=== PATIENT | female | born 1965 | race Two or more races ===

== ENCOUNTER 2022-01-11 12:02 | Outpatient (REF) | payer OTHER, SELFPAY ==
--- NOTE | ~2022-01-11 | MM_ITS ---
EXAMINATION: MM SCREENING DIGITAL BREAST TOMOSYNTHESIS, BILATERAL CLINICAL INFORMATION: Screening. Asymptomatic. The lifetime risk of breast cancer based on the Tyrer-Cuzick Model is 5%. COMPARISON: Mammography: 06/19/2019, outside mammography 06/29/2017 ([facility]). TECHNIQUE: Digital breast tomosynthesis is performed in both the craniocaudal and mediolateral oblique views along with computer-aided detection (CAD). Synthesized 2D images are generated from the tomosynthesis. FINDINGS: The breasts are heterogeneously dense, which may obscure small masses (ACR BI-RADS breast composition Category c). Parenchymal pattern is similar to prior studies. There is no interval mass or architectural abnormality or developing density. The axilla and skin contours are unremarkable. Small circumscribed nodule anterior 3:00 left breast is stable. There are some interval coarse calcifications overlying oil cyst posterior medial left breast with prior mammography. Right breast again demonstrates 2 biopsy clip markers posterior lower inner breast. There are some adjacent stable calcifications adjacent to the more posterior clip. MM/MM tomosynthesis screening BI IMPRESSION: No significant changes from prior exams. ASSESSMENT: BI-RADS 2: Benign RECOMMENDATION: Routine annual mammography screening. This patient's information was entered into a reminder system with a target due date for their next mammogram.
--- NOTE | ~2022-01-11 | MM_ITS ---
EXAMINATION: BONE DENSITOMETRY CLINICAL INDICATION: Menopause. COMPARISON: Baseline BD dated 06/14/2019. TECHNIQUE: Using a [employer] DXA System (software version: 13.1) manufactured by [employer], dual-energy x-ray absorptiometry was performed of the lumbar spine and left hip. The images are of good technical quality. Summary results are attached. FINDINGS: AP SPINE L1-L4: Current: BMD 1.066 g/cm2, Z-score 0.2, T-score -0.9, normal, 0.9% decrease from baseline (<5% change is not significant). Baseline: BMD 1.076 g/cm2. LEFT FEMUR, NECK: Current: BMD 0.796 g/cm2, Z-score -0.5, T-score -1.7, osteopenia. Baseline: BMD 0.808 g/cm2. LEFT FEMUR, TOTAL: Current: BMD 0.910 g/cm2, Z-score 0.1, T-score -0.8, normal, 2.9% decrease from baseline (<5% change is not significant). Baseline: BMD 0.937 g/cm2. IDENTIFIED RISK FACTORS: Menopause, rheumatoid arthritis, Thiazide. HISTORY OF FRACTURE: None listed. MEDICATIONS: Vitamin D. MM/XR DEXA axial skeleton IMPRESSION: 1. DIAGNOSIS: Osteopenia based on the lowest T-score value of -1.7 in the femoral neck applying World Health Organization criteria. 2. 10-YEAR FRACTURE RISK PREDICTION, FRAX: Major osteoporotic fracture (clinical spine, forearm, hip or shoulder) 5.9%. Hip fracture 0.7%. 3. Treatment Recommendations: NOF guidelines recommend consideration for treatment in postmenopausal women and men age 50 and older presenting with the following: -A hip or vertebral (clinical or morphometric) fracture. -T-score less than or equal to -2.5 at the femoral neck or spine after appropriate evaluation to exclude secondary causes. -Low bone mass at the hip or spine and a 10-year fracture probability by FRAX of greater than or equal to 3% for hip fracture or greater than or equal to 20% for major osteoporotic fracture based on the [place] adapted WHO algorithm. 4. Other Recommendations: All treatment decisions require clinical judgment and consideration of individual patient factors, including patient preferences, comorbidities, previous drug use, risk factors not captured in the FRAX model (e.g. frailty, falls, vitamin D deficiency, increased bone turnover, interval significant decline in bone density) and possible under or overestimation of fracture risk by FRAX. Additional medical evaluation for secondary cause of low bone mineral density may be appropriate. FUTURE SCAN RECOMMENDATION: People with diagnosed cases of osteoporosis or at high risk for fracture should have regular bone mineral density tests. For patients eligible for Medicare, routine testing is allowed once every 2 years. The testing frequency can be increased to one year for patients who have rapidly progressing disease, those who are receiving or discontinuing medical therapy to restore bone mass, or have additional risk factors.
== END 2022-01-11 12:03 | disposition home or self-care (01) ==
LOC: HO.MAMMO 12:02
PROVIDERS: PCP Pediatrics; Visit Provider Internal Medicine
DX: Z12.31 Encounter for screening mammogram for malignant neoplasm of breast (principal); Z13.820 Encounter for screening for osteoporosis; Z78.0 Asymptomatic menopausal state; M85.80 Other specified disorders of bone density and structure, unspecified site
CPT/HCPCS: 77063; 77067; 77080

== ENCOUNTER 2022-01-12 08:42 | Outpatient (REF) | payer OTHER, SELFPAY ==
--- NOTE | ~2022-01-12 | XR_ITS ---
EXAMINATION: XR CERVICAL SPINE CLINICAL INFORMATION: Neck pain. COMPARISON: None TECHNIQUE: 3 views of the cervical spine were obtained. FINDINGS: There is maintained cervical lordosis. The vertebral heights, alignment and disc heights are normal. There is mild ventral spondylosis at the C5-C6 disc level. Rest of the disc heights are normal. No visible acute fracture, dislocation or subluxation seen. The soft tissues are normal. XR/XR cervical spine 3V IMPRESSION: Mild ventral spondylosis C5-C6 disc level. Otherwise unremarkable cervical spine exam.
== END 2022-01-12 08:43 | disposition home or self-care (01) ==
LOC: HO.XRAY 08:42
PROVIDERS: PCP Pediatrics; Visit Provider Nurse Practitioner Family
DX: M54.2 Cervicalgia (principal); M62.838 Other muscle spasm
CPT/HCPCS: 72040; 99202

== ENCOUNTER → 2022-01-20 10:17 | Outpatient (BNVA) | payer OTHER, SELFPAY | PROVIDERS: PCP Pediatrics; Visit Provider Surgery Vascular Surgery | DX: I83.12 Varicose veins of left lower extremity with inflammation (principal) | CPT/HCPCS: 99202 ==

== ENCOUNTER 2022-07-11 08:06 | Outpatient (REF) | payer OTHER, SELFPAY ==
--- NOTE | ~2022-07-11 | US_ITS ---
EXAMINATION: US LOWER EXTREMITY VENOUS (REFLUX EXAM), BILATERAL CLINICAL INDICATION: Chronic venous insufficiency with lower extremity varicose veins, pain and swelling COMPARISON: None. TECHNIQUE: Color flow triplex imaging and compression Doppler was performed to evaluate both the deep and the superficial systems bilaterally. To evaluate the superficial system, the examination was performed in the upright position. Color-flow Doppler ultrasound and compression ultrasound were utilized. In addition, maneuvers were utilized to demonstrate reflux. FINDINGS: 1. DEEP VENOUS ULTRASOUND OF THE RIGHT LOWER EXTREMITY: Common Femoral Vein: Compressible, normal respiratory variation and augmented flow. Femoral Vein: Compressible, normal color flow and augmentation. Popliteal Vein: Compressible, normal augmentation. Deep Reflux: There is reflux in the popliteal vein measuring 3260 ms There is no evidence of a Card's cyst. 2. SUPERFICIAL ULTRASOUND WITH DOPPLER OF RIGHT LOWER EXTREMITY: GREAT SAPHENOUS VEIN: Saphenofemoral Junction: 0.5 cm; Reflux: 0 ms Proximal Thigh: 0.3 cm; Reflux: 0 ms Mid Thigh: 0.3 cm; Reflux: 2765 ms Above Knee: 0.2 cm; Reflux: 3444 ms At Knee: 0.2 cm; Reflux: 0 ms Below Knee: 0.2 cm; Reflux: 0 ms Mid Calf: 0.2 cm; Reflux: 1220 ms Ankle: 0.3 cm; Reflux: 0 ms DUPLICATED MEDIAL GREAT SAPHENOUS VEIN: Diameter: None Imaged Reflux: NA DUPLICATED LATERAL GREAT SAPHENOUS VEIN: Diameter: None Imaged Reflux: NA SMALL SAPHENOUS VEIN: Proximal: 0.3 cm; Reflux: 0 ms Distal: 0.3 cm; Reflux: 3444 ms VEIN OF GIACOMINI: None Imaged. PERFORATORS: Location: None Imaged Size: NA Reflux: NA VARICOSITIES: Location: Multiple small varicose veins throughout the thigh and calf Size: Less than 2 mm Reflux: None 3. DEEP VENOUS ULTRASOUND OF THE LEFT LOWER EXTREMITY: Common Femoral Vein: Compressible, normal respiratory variation and augmented flow. Femoral Vein: Compressible, normal color flow and augmentation. Popliteal Vein: Compressible, normal augmentation. Deep Reflux: There is mild reflux in the common femoral vein measuring 1212 ms There is no evidence of a Card's cyst. 4. SUPERFICIAL ULTRASOUND WITH DOPPLER OF LEFT LOWER EXTREMITY: GREAT SAPHENOUS VEIN: Saphenofemoral Junction: 1.1 cm; Reflux: 0 ms Proximal Thigh: 0.6 cm; Reflux: 0 ms Mid Thigh: 0.7 cm; Reflux: 1176 ms Above Knee: 0.8 cm; Reflux: 2272 ms At Knee: 0.6 cm; Reflux: 3080 ms Below Knee: 0.5 cm; Reflux: 3384 ms Mid Calf: 0.3 cm; Reflux: 3480 ms Ankle: 0.2 cm; Reflux: 784 ms DUPLICATED MEDIAL GREAT SAPHENOUS VEIN: Diameter: None Imaged Reflux: NA DUPLICATED LATERAL GREAT SAPHENOUS VEIN: Diameter: None Imaged Reflux: NA SMALL SAPHENOUS VEIN: Proximal: 0.2 cm; Reflux: 0 ms Distal: 0.2 cm; Reflux: 0 ms VEIN OF GIACOMINI: None Imaged. PERFORATORS: Location: None Imaged Size: NA Reflux: NA VARICOSITIES: Location: Multiple varicosities seen throughout the thigh and calf Size: Ranging from less than than 3 mm to 6.8 mm Reflux: 1120 ms to 2988 ms US/US venous duplex LE BI IMPRESSION: Right: Segmental areas of severe reflux in the right great saphenous vein within the thigh and calf as described above. Focal reflux in the right small saphenous vein in the distal calf. Deep venous reflux in the right popliteal vein. Scattered small varicose veins. Left: Severe reflux is seen throughout the left great saphenous vein with multiple varicose veins as described above.
== END 2022-07-11 08:07 | disposition home or self-care (01) ==
LOC: HO.US 08:06
PROVIDERS: PCP Pediatrics; Visit Provider Surgery Vascular Surgery
DX: I83.12 Varicose veins of left lower extremity with inflammation (principal); M54.2 Cervicalgia; M62.838 Other muscle spasm
CPT/HCPCS: 93970; 99212

== ENCOUNTER 2022-07-20 19:06 | Outpatient (REF) | payer OTHER, SELFPAY ==
--- NOTE | ~2022-07-20 | MR_ITS ---
EXAMINATION: MR CERVICAL SPINE WITHOUT CONTRAST CLINICAL INFORMATION: Spondylosis without myelopathy or radiculopathy, cervical region. COMPARISON: None available. TECHNIQUE: MRI of the cervical spine was performed using routine sequences without contrast. FINDINGS: The cervical vertebral bodies maintain normal heights and alignment. There is reversal of the normal cervical lordosis. Mild disc height loss is seen at C4-C5 and C6-C7 with moderate disc height loss seen at C5-C6. There is no bone marrow edema. The cervical cord signal appears normal. The imaged portions of the intracranial contents and extraspinal soft tissues appear normal. Midface augmentation changes are partially visualized. SPINAL LEVELS: C2-C3: No posterior disc abnormality. No spinal canal or neural foraminal stenosis. C3-C4: No posterior disc abnormality. No spinal canal or neural foraminal stenosis. C4-C5: Mild disc bulging with uncovertebral hypertrophy. Mild left neural foraminal stenosis and mild spinal canal stenosis. C5-C6: Disc bulging with uncovertebral hypertrophy resulting in mild spinal canal stenosis and moderate to severe left neural foraminal stenosis. C6-C7: Mild disc bulging. No spinal canal or neural foraminal stenosis. C7-T1: No posterior disc abnormality. No spinal canal or neural foraminal stenosis. MR/MR cervical spine wo con IMPRESSION: Mild degenerative spondylosis without significant narrowing of the spinal canal. Neural foraminal stenosis appears moderate to severe on the left at C5-C6.
== END 2022-07-20 19:07 | disposition home or self-care (01) ==
LOC: HO.MRI 19:06
PROVIDERS: Visit Provider Anesthesiology
DX: M47.812 Spondylosis without myelopathy or radiculopathy, cervical region (principal)
CPT/HCPCS: 72141

== ENCOUNTER 2022-10-11 06:08 | Outpatient (REF) | payer OTHER, SELFPAY ==
--- NOTE | ~2022-10-11 | FL_ITS ---
EXAMINATION: XR FLUOROSCOPY WITH IMAGES CLINICAL INFORMATION: Cervical radiculopathy. COMPARISON: MRI of 07/20/2022 TECHNIQUE: Fluoroscopy Supervised By: Dr. Brayan Rodriguez. Fluoroscopy Time: 0.5 minutes. Cumulative Dose: 11 mGy. DAP: 1.86 Gycm2. Images: 1. FINDINGS: Single image demonstrates needle overlying the right lateral aspect of what appears to be T1 with contrast seen caudad and cephalad to the needle. FL/FL guidance in treatment room IMPRESSION: Intraoperative fluoroscopy for pain management procedure.
== END 2022-10-11 06:09 | disposition home or self-care (01) ==
LOC: CF 06:08
PROVIDERS: Visit Provider Anesthesiology
DX: M47.22 Other spondylosis with radiculopathy, cervical region (principal); M47.812 Spondylosis without myelopathy or radiculopathy, cervical region
CPT/HCPCS: 62323; J1100

== ENCOUNTER → 2022-10-25 09:42 | Outpatient (BNVA) | payer OTHER, SELFPAY | PROVIDERS: PCP Pediatrics; Visit Provider Surgery Vascular Surgery | DX: I83.12 Varicose veins of left lower extremity with inflammation (principal) | CPT/HCPCS: 99212 ==

== ENCOUNTER → 2022-12-12 11:11 | Outpatient (BNVA) | payer OTHER, SELFPAY | PROVIDERS: PCP Pediatrics; Visit Provider Anesthesiology | DX: M47.812 Spondylosis without myelopathy or radiculopathy, cervical region (principal); M47.22 Other spondylosis with radiculopathy, cervical region; M50.30 Other cervical disc degeneration, unspecified cervical region | CPT/HCPCS: 99212 ==

== ENCOUNTER → 2022-12-16 08:15 | Outpatient (BNVA) | payer OTHER, SELFPAY | PROVIDERS: PCP Pediatrics; Visit Provider Surgery Vascular Surgery | DX: M79.605 Pain in left leg (principal); I83.12 Varicose veins of left lower extremity with inflammation | CPT/HCPCS: 36482 ==

== ENCOUNTER 2022-12-20 11:06 | Outpatient (REF) | payer OTHER, SELFPAY ==
--- NOTE | ~2022-12-20 | US_ITS ---
EXAMINATION: US VENOUS ULTRASOUND WITH DOPPLER LOWER EXTREMITY, LEFT CLINICAL INFORMATION: Left leg pain status post Venaseal. COMPARISON: None available. TECHNIQUE: Ultrasound of the deep veins is performed from the hip to the calf with compression sonography and color and pulse Doppler assessment. Spectral analysis with color-flow imaging is performed. FINDINGS: Termination demonstrates thrombosis of the visualized portion of the greater saphenous vein. Findings suggest thrombus from the greater saphenous vein to extend approximately 0.4 cm beyond the saphenofemoral junction, somewhat protruding into the common femoral vein. The common femoral vein otherwise appears patent. There is normal venous compression and respiratory variation and augmented flow. The visualized femoral vein, profunda femoral vein, popliteal vein, and the trifurcation region shows no evidence of deep venous thrombosis. A complex left Card's cyst measures 4.2-3 0.7 x 1.8 cm. US/US venous duplex LE LT IMPRESSION: Thrombosis of the visualized portion of the greater saphenous vein reportedly status post Venaseal procedure. Findings suggest thrombus from the greater saphenous vein to extend approximately 0.4 cm beyond the saphenofemoral junction, somewhat protruding into the common femoral vein. The common femoral vein otherwise appears patent. Dr. Ovalle was informed of the findings at approximately noon on December 20, 2022. Dr. Ovalle advised the patient to take an aspirin daily, and advised that the patient could return home.
== END 2022-12-20 11:07 | disposition home or self-care (01) ==
LOC: HO.US 11:06
PROVIDERS: PCP Pediatrics; Visit Provider Surgery Vascular Surgery
DX: M79.605 Pain in left leg (principal)
CPT/HCPCS: 93971

== ENCOUNTER 2022-12-30 15:24 | Outpatient (REF) | payer OTHER, SELFPAY ==
--- NOTE | ~2022-12-30 | US_ITS ---
EXAMINATION: US VENOUS ULTRASOUND WITH DOPPLER LOWER EXTREMITY, LEFT CLINICAL INFORMATION: R/O DVT Left LE s/p Left GSV Venaseal COMPARISON: Venous Doppler ultrasound exam 12/20/2022 TECHNIQUE: Ultrasound of the deep veins is performed from the hip to the calf with compression sonography and color and pulse Doppler assessment. Spectral analysis with color-flow imaging is performed. FINDINGS: Redemonstration of the thrombus in the greater saphenous vein extending up to the saphenofemoral junction. The thrombus does not extend into the common femoral vein on today's exam. This is improved since the prior study of 12/20/2022 where there was previously approximately 0.4 cm extension of thrombus beyond the saphenofemoral junction. There is no thrombus in the common femoral vein or the remainder of deep vein left lower extremity. US/US venous duplex LE LT IMPRESSION: Redemonstration of the thrombus in the greater saphenous vein extending up to the saphenofemoral junction. The thrombus does not extend into the common femoral vein on today's exam. This is improved since the prior study of 12/20/2022 where there was previously 0.4 cm extension of thrombus beyond the saphenofemoral junction. This result was discussed with Dr. Ovalle on 1536 hours, 12/22/2022 and it was ascertained that the content and urgency of the report was understood at the time of direct communication.
== END 2022-12-30 15:25 | disposition home or self-care (01) ==
LOC: HO.US 15:24
PROVIDERS: PCP Pediatrics; Visit Provider Surgery Vascular Surgery
DX: M79.605 Pain in left leg (principal)
CPT/HCPCS: 93971

== ENCOUNTER → 2023-01-12 14:38 | Outpatient (BNVA) | payer OTHER, SELFPAY | PROVIDERS: PCP Pediatrics; Visit Provider Surgery Vascular Surgery | DX: I83.12 Varicose veins of left lower extremity with inflammation (principal) | CPT/HCPCS: 99212 ==

== ENCOUNTER 2023-05-10 12:34 | Outpatient (REF) | payer OTHER, SELFPAY ==
[2023-05-10 14:15] LABS: MANUAL DIFF FLAG NO
[2023-05-10 14:19] LABS: Basophils Absolute Auto 0.1 X10*3/uL (0.0-0.2); Eosinophils Absolute Auto 0.1 X10*3/uL (0.0-0.4); Eosinophils Percent Auto 1.3 % (0-4); Hematocrit 42.5 % (37.0-47.0); Imm Gran Abs Auto 0.01 X10*3/uL (0.00-0.03); Imm Gran Pct Auto 0.2 % (0.0-0.4); Lymphocytes Absolute Auto 1.7 X10*3/uL (1.2-4.9); Lymphocytes Percent Auto 35.3 % (20-40); Mean Corpuscular HGB Conc 32.9 g/dl (31.0-35.0); Mean Corpuscular Hemoglobin 29.2 pg (27.0-33.0); Mean Corpuscular Volume 88.7 fL (80.0-98.0); Mean Platelet Volume 11.7 fL (9.4-12.3); Monocytes Absolute Auto 0.4 X10*3/uL (0.1-1.2); Monocytes Percent Auto 8.1 % (2-11); Neutrophils Absolute Auto 2.6 x10*3/uL (2.0-8.3); Neutrophils Percent Auto 54.1 % (45-73); Platelet Count 307 X10*3/uL (160-400); Red Blood Count 4.79 X10*6/uL (4.20-5.50); Red Cell Distribution Width 12.3 % (11.0-16.0); White Blood Count 4.8 X10*3/uL (4.8-10.8)
[2023-05-10 15:00] LABS: Alanine Aminotransferase 16 U/L (0-31); Alkaline Phosphatase 107 U/L (39-117); Anion Gap 16 (12-20); Aspartate Amino Transferase 17 U/L (5-31); Blood Urea Nitrogen 11 mg/dL (9-16); Calcium 10.3 mg/dL (8.4-10.2); Carbon Dioxide 30 mmol/L (22-29); Chloride 102 mmol/L (96-108); Cholesterol 287 mg/dL (<200); Estimated Glomerular Filt Rate > 60; Glucose Fasting 101 mg/dL (60-99); HDL Cholesterol 54 mg/dL (>40); LDL Cholesterol Calculated 201 mg/dL (<100); Potassium 3.9 mmol/L (3.3-5.1); Sodium 144 mmol/L (135-145); Total Protein 7.9 g/dL (6.5-8.0); Triglycerides 164 mg/dL (<150)
[2023-05-10 15:14] LABS: TSH reflex Free T4 1.68 uIU/mL (0.32-4.0)
[2023-05-10 15:27] LABS: Creatinine Urine 45.76 mg/dL; Microalbum/Creatinine Ratio Ur 30.5 ug/mg cr (<30)
[2023-05-15 00:54] LABS: VITAMIN D (1,25 OH) D3 75 pg/mL; Vit D (1,25-Dihydroxy) Total 75 pg/mL (18-72); Vitamin D (1,25 OH) D2 <8 pg/mL
== END 2023-05-10 12:35 | disposition home or self-care (01) ==
LOC: HO.CHCLDS 12:34
PROVIDERS: Visit Provider Family Medicine
DX: I10 Essential (primary) hypertension (principal); E55.9 Vitamin D deficiency, unspecified
CPT/HCPCS: 36415; 80053; 80061; 82043; 82570; 82652; 84443; 85025